=== PATIENT | female | born 1995 | race Two or more races ===

== ENCOUNTER 2017-06-05 10:21 | Emergency (ER) | payer OTHER ==
[~2017-06-05] VITALS: Ht 160 cm; Wt 106.1 kg
[2017-06-05 10:36] VITALS: BP 119/76
[2017-06-05] MEDS ORDERED: IBUPROFEN600 MG ORAL (10:50)
[2017-06-05 10:56] VITALS: BP 119/76
--- NOTE | 2017-06-05 11:04 | Emergency Room Report ---
History of Present Illness General Chief Complaint: Pain Source: Patient Present Illness HPI 21-year-old female in no significant past medical history presenting with bilateral wrist pain for 3 weeks. 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 Also at times feels numbness to first 3 fingers. No other trauma no other complaints Allergies: Coded Allergies: No Known Allergies (Unverified , 06/05/17) Patient History Past Medical History: see triage record Past Surgical History: none Pertinent Family History: none Last Menstrual Period: 05/23/17 Now: No : 0 Para: 0 Reviewed Nursing Documentation: PMH: Agreed, PSxH: Agreed Nursing Documentation-PMH Past Medical History: No Stated History Review of Systems All Other Systems: negative except mentioned in HPI Physical Exam Vital Signs Date Time Temp Pulse Resp B/P (MAP) Pulse Ox O2 Delivery O2 Flow Rate FiO2 06/05/17 10:26 98.2 73 16 119/76 98 Room Air Sp02 EP Interpretation: reviewed, normal General Appearance: normal inspection, well appearing, no apparent distress, alert, GCS 15, non-toxic Head: normocephalic, atraumatic Eyes: bilateral eye normal inspection, bilateral eye PERRL, bilateral eye EOMI ENT: normal ENT inspection, normal pharynx, normal voice, moist mucus membranes Neck: normal inspection, full range of motion, supple Respiratory: normal inspection, lungs clear, normal breath sounds, no respiratory distress, no retraction, no wheezing, speaking full sentences, chest symmetrical Cardiovascular #1: normal inspection, regular rate, rhythm, no edema, normal capillary refill Cardiovascular #2: 2+ radial (R), 2+ radial (L) Gastrointestinal: normal inspection, non tender, soft, non-distended, no guarding Musculoskeletal: back normal, normal range of motion, non-tender, other - Hammad 's test positive for right hand, tender to palpation bilateral wrists for carpal tunnel, no gross bony deformities, no swelling, no erythema, full range of motion good strength Neurologic: normal inspection, alert, oriented x3, responsive, motor strength/ tone normal, sensory intact, normal gait, speech normal Psychiatric: normal inspection, judgement/insight normal, memory normal Skin: normal inspection, normal color, no rash, warm/dry, well hydrated, normal turgor Medical Decision Making Diagnostic Impression: Primary Impression: Chronic pain of both wrists ER Course 21-year-old female with bilateral wrist pain right worse than left for 3 weeks DDX: Chronic wrist pain, at this time I do not suspect any acute fracture. Likely mild carpal tunnel syndrome Plan: Motrin ER course: Patient has remained stable during ED stay. Pain improved motion Disposition: Patient is to be discharged to home. Prescriptions given are Motrin Patient is instructed to follow up with their primary care doctor within 5 days. Patient is instructed to follow up with orthopedic doctor in 2 weeks if not better Strict return precautions discussed with patient such as fever, chills, worsening/severe pain, nausea, vomiting, which may indicate severe illness. Patient verbalizes understanding and agrees with plan. Please note that this Emergency Department Report was dictated using [employer] technology software, occasionally this can lead to erroneous entry secondary to interpretation by the dictation equipment Last Vital Signs Date Time Temp Pulse Resp B/P (MAP) Pulse Ox O2 Delivery O2 Flow Rate FiO2 06/05/17 11:00 98.3 06/05/17 10:56 16 119/76 98 Room Air 06/05/17 10:26 73 Disposition: HOME, SELF-CARE Condition: Stable Scripts Ibuprofen* (MOTRIN*) 600 Mg Tablet 600 MG ORAL Q8H Y for For Pain, #30 TAB 0 Refills Prov: Marielle Kaiser M.D. 06/05/17 Departure Forms: Return to Work Return to Work in (Days): 1 Return to Work Date: Jun 07, 2017 Patient Instructions: Carpal Tunnel Syndrome, [id number] Additional Instructions: Please followup with your primary care doctor and orthopedic surgery in 2 weeks if not feeling better Marielle Kaiser M.D. Jun 05, 2017 11:04
== END 2017-06-05 10:56 | disposition home or self-care (01) ==
LOC: EMR 10:50
DX: M25.532 Pain in left wrist (principal); M25.531 Pain in right wrist; G89.29 Other chronic pain
CPT/HCPCS: 99283